=== PATIENT | female | born 1980 | race Caucasian/White ===

== ENCOUNTER → 2017-06-08 09:34 | Outpatient (CLI) | payer OTHER, SELFPAY ==
--- NOTE | 2017-06-08 09:48 | XR_ITS ---
EXAM: XR lumbar spine min 4V HISTORY: Low back pain following injury ORDERING PHYSICIAN: Mey Sheehan PATIENT AGE: 36 years COMPARISON: 12/17/2016 FINDINGS: No acute fracture or dislocation. No lytic or blastic change. Suspected pars interarticularis defect noted at L5 on both sides. CT or MRI may confirm if clinically warranted. No spondylolisthesis. Mild degenerative disc disease in the lower thoracic spine and at T12-L1 as well as L5-S1 not significant changed.. IMPRESSION: 1. No change with no acute finding. 2. Mild lumbar spondylosis with suspected pars defect at L5
--- NOTE | 2017-06-08 09:49 | XR_ITS ---
XR forearm RT 2V HISTORY: Pain following injury ITS.REASON: HILDA BACK PAIN,INJURY RT FOREARM,CERVICALGIA ORDERING PHYSICIAN: Mey Sheehan PATIENT AGE: 36 years COMPARISON: None FINDINGS: No obvious fracture, dislocation, lytic change or blastic change. Normal mineralization. Unremarkable soft tissues IMPRESSION: Negative forearm
--- NOTE | 2017-06-08 09:49 | XR_ITS ---
EXAM: XR cervical spine 5V HISTORY: Neck pain following injury ORDERING PHYSICIAN: Mey Sheehan PATIENT AGE: 36 years COMPARISON: None FINDINGS: There is straightening of the cervical lordosis which may be due to patient positioning or muscle spasm. There is minimal anterolisthesis of C3 on 4 and C4 on 5 of 1 to 2 mm at each level. No prevertebral soft tissue swelling. No fracture or dislocation. Mild foraminal narrowing is noted on the left at C3-C4 and C4-C5. No other significant anomalies are evident. IMPRESSION: 1. Straightening of cervical lordosis which may be due to patient positioning or muscle spasm. 2. Mild left-sided foraminal narrowing at C3-C4 and C4-C5
== END ==
PROVIDERS: PCP Family Medicine; Visit Provider Nurse Practitioner Family
DX: M54.41 Lumbago with sciatica, right side (principal); M54.2 Cervicalgia; S59.911A Unspecified injury of right forearm, initial encounter
CPT/HCPCS: 72050; 72110; 73090

== ENCOUNTER → 2017-10-21 13:54 | Outpatient (CLI) | payer OTHER, SELFPAY | PROVIDERS: PCP Nurse Practitioner; Visit Provider Nurse Practitioner | DX: R00.2 Palpitations (principal) | CPT/HCPCS: 93225; 93226 ==

== ENCOUNTER → 2020-11-19 07:15 | Outpatient (CLI) | payer SELFPAY ==
--- NOTE | 2020-11-19 07:16 | CT_ITS ---
PROCEDURE: CT HEART W CALCIUM SCORE CLINICAL HISTORY: DM COMPARISON: No exams were available for comparison TECHNIQUE: Axial images obtained with sagittal and coronal reformats. All CT scans at the facility use one or more dose reduction, viz: automated exposure control, ma/kV adjustment per patient size (including targeted exams where dose is matched to indication, i.e. head), or iterative reconstruction technique. FINDINGS: Coronary artery calcium score is 0. No identifiable calcific atherosclerotic plaque with very low cardiovascular disease risk There are degenerative changes at the costovertebral junction in the lower thoracic spine IMPRESSION: No identifiable calcific atherosclerotic plaque with very low cardiovascular disease risk Dictated by: Mike Kelley MD 11/19/2020 16:24 Mike Kelley MD in [place] 11/19/2020 16:24
== END ==
PROVIDERS: PCP Nurse Practitioner Family; Visit Provider Physician Assistant
DX: Z13.6 Encounter for screening for cardiovascular disorders (principal); E11.69 Type 2 diabetes mellitus with other specified complication; I10 Essential (primary) hypertension; Z79.84 Long term (current) use of oral hypoglycemic drugs
CPT/HCPCS: 75571

== ENCOUNTER → 2022-06-15 10:28 | Outpatient (CLI) | payer OTHER, SELFPAY ==
--- NOTE | 2022-06-15 10:36 | XR_ITS ---
FINAL REPORT CLINICAL HISTORY: LEFT WRIST PAIN FINDINGS: LEFT WRIST Three views demonstrate no acute fracture or dislocation. There is positive ulnar variance with a cyst in the proximal medial lunate. Ulnar impaction syndrome not excluded. There is widening of the distal radial ulnar joint. Soft tissues are unremarkable. IMPRESSION: Possible ulnar impaction syndrome with widening of the distal radial ulnar joint. Reviewed, Interpreted and Dictated by Justin Noriega III, MD Transcribed by Lucie Laguerre Authenticated and . [facility]
== END ==
PROVIDERS: PCP Nurse Practitioner Family; Visit Provider Nurse Practitioner Family
DX: M25.532 Pain in left wrist (principal)
CPT/HCPCS: 73110

== ENCOUNTER → 2022-09-03 11:33 | Outpatient (CLI) | payer OTHER, SELFPAY ==
--- NOTE | 2022-09-03 11:39 | XR_ITS ---
FINAL REPORT CLINICAL HISTORY: NO INJURY, low back pain COMPARISON: 06/08/2017 FINDINGS: LUMBAR SPINE Six views demonstrate no acute fracture. There are mild degenerative changes. There is no malalignment. IMPRESSION: No acute bony abnormality. Reviewed, Interpreted and Dictated by Justin Noriega III, MD Transcribed by Iris Berrios Authenticated and [facility]
== END ==
PROVIDERS: PCP Nurse Practitioner Family; Visit Provider Nurse Practitioner Family
DX: M54.50 Low back pain, unspecified (principal); M43.06 Spondylolysis, lumbar region
CPT/HCPCS: 72110

== ENCOUNTER 2023-12-06 10:31 | Outpatient (CLI) | payer OTHER, SELFPAY ==
[2023-12-06 10:53] LABS: Basophils # 0.1 K/mm3 (0-0.2); Eosinophils # 0.1 K/mm3 (0.0-0.4); Eosinophils % 1.1 % (0.1-12.0); Hematocrit 44.5 % (37.0-47.0); Hemoglobin 14.7 g/dL (12.2-16.2); Lymphocytes # 2.5 K/mm3 (0.7-4.5); Mean Corpuscular Hemoglobin 30.2 pg (27.0-31.2); Mean Corpuscular Volume 91.6 fl (81-99); Mean Platelet Volume 9.1 fl (7.4-10.4); Monocytes # 0.4 K/mm3 (0.1-1.0); Monocytes % 3.1 % (1.7-9.3); Neutrophils % 71.8 % (37.0-80.0); Platelet Count 389 K/mm3 (142-424); Red Blood Count 4.85 M/mm3 (4.20-5.40); Red Cell Distribution Width 14.2 % (11.5-17.5); White Blood Count 11.1 K/mm3 (4.8-10.8)
[2023-12-06 11:23] LABS: Alanine Aminotransferase 22 U/L (12-78); Albumin Level 3.5 g/dl (3.5-5.0); Alkaline Phosphatase 84 U/L (38-126); Anion Gap 11.9 mEq/L (5-15); Aspartate Amino Transferase 23 U/L (14-36); Bilirubin,Indirect 0.5 mg/dL (0.0-0.9); Bilirubin,Total 0.5 mg/dl (0.2-1.3); Bilirubin,Unconjugated 0.7 mg/dL (0.0-1.1); Blood Urea Nitrogen 10 mg/dl (7-17); Calcium 9.5 mg/dl (8.4-10.2); Carbon Dioxide 26 mmol/L (22.0-30.0); Chloride 103 mmol/L (98-107); Chol/HDL Ratio 4.4 (1-3.5); Cholesterol 235 mg/dl (140-200); Estimated Glomerular Filt Rate 90 ml/min (>60); GFR (African American) 109 ML/MIN (>60); Glucose 134 mg/dl (74-100); HDL Cholesterol 53 mg/dl (40-60); Magnesium 1.7 mg/dl (1.6-2.3); Potassium 3.9 mmoL/L (3.5-5.1); Sodium 137 mmol/L (136-145); Total Protein,Serum 6.3 g/dl (6.3-8.2); Triglycerides 201 mg/dl (30-150); VLDL Cholesterol 40 mg/dL (0-40)
[2023-12-06 11:35] LABS: Direct LDL Cholesterol 153.61 mg/dL (100-129)
[2023-12-06 11:42] LABS: Free T4 (Free Thyroxine) 0.61 ng/dl (0.78-2.19)
== END 2023-12-06 23:59 | disposition home or self-care (01) ==
LOC: LAB 10:32
PROVIDERS: PCP Nurse Practitioner; Visit Provider Nurse Practitioner
DX: I10 Essential (primary) hypertension (principal); E06.3 Autoimmune thyroiditis
CPT/HCPCS: 80048; 80061; 80076; 83735; 84439; 84443; 85025

== ENCOUNTER 2024-02-01 13:56 | Outpatient (CLI) | payer OTHER, SELFPAY ==
--- NOTE | 2024-02-01 | MR_ITS ---
FINAL REPORT CLINICAL HISTORY: LBP COMPARISON: None FINDINGS: Multiplanar MR imaging of the lumbar spine was performed without contrast. On the sagittal T2-weighted images, there is abnormal decreased signal in the L3-4, L4-5, and L5-S1 discs. The vertebrae are of normal height. The vertebral alignment is normal. L1-2: There is no significant canal stenosis or neural foraminal narrowing. L2-3: There is no significant canal stenosis or neural foraminal narrowing. L3-4: There is no significant canal stenosis or neural foraminal narrowing. L4-5: There is a moderate-sized midline and left paracentral disc protrusion that produces moderate compromise of the left lateral recess. L5-S1: A moderate annular bulge is present, with moderate bilateral neural foraminal narrowing. IMPRESSION: Degenerative changes present, particularly at the L4-5 and L5-S1 levels as described. Reviewed, Interpreted and Dictated by Sabino Cho MD Transcribed by Nafisa Terry Authenticated and [facility]
== END 2024-02-01 23:59 | disposition home or self-care (01) ==
LOC: RAD 13:57
PROVIDERS: PCP Nurse Practitioner; Visit Provider Student in an Organized Health Care Education/Training Program
DX: M54.41 Lumbago with sciatica, right side (principal); M54.42 Lumbago with sciatica, left side
CPT/HCPCS: 72148

== ENCOUNTER 2024-08-22 10:52 | Outpatient (CLI) | payer OTHER, SELFPAY ==
[2024-08-22 11:41] LABS: Albumin Level 3.7 g/dl (3.5-5.0)
[2024-08-22 11:44] LABS: Alanine Aminotransferase 17 U/L (12-78); Alkaline Phosphatase 90 U/L (38-126); Aspartate Amino Transferase 20 U/L (14-36); Bilirubin,Direct 0.1 mg/dl (0.0-0.4); Bilirubin,Indirect 0.6 mg/dL (0.0-0.9); Bilirubin,Total 0.7 mg/dl (0.2-1.3); Bilirubin,Unconjugated 0.6 mg/dL (0.0-1.1); Chol/HDL Ratio 3.8 (1-3.5); Cholesterol 228 mg/dl (140-200); HDL Cholesterol 60 mg/dl (40-60); Total Protein,Serum 6.4 g/dl (6.3-8.2); Triglycerides 180 mg/dl (30-150); VLDL Cholesterol 36 mg/dL (0-40)
[2024-08-22 11:55] LABS: Direct LDL Cholesterol 142.78 mg/dL (100-129)
--- OUTSIDE RECORDS SUMMARY | 2024-08-24 21:07 | XMS_ITS ---
Author Organization [facility] Address [address] [place] [address] Phone Care Team Providers Care Human Resources Executive Name Role Phone ADRIANA TANNIE Unavailable [phone] Tasha REYES, [facility] Unavailable [phone] Problems Includes: Active, inactive, and resolved Problems All Visits Onset Date Resolved Date Provider Condition S tatus Lower Back Pain 11/05/2022 Jemal Arcos MD Act shani Last Documented On 3 10:37AM ; [facility], [facility] Plan of Treatment Instructions to patient Lose weight Last Documented On 4 9:45AM ; [facility] Lose weight Last Documented On 4 10:23AM ; [facility] Lose weight Last Documented On 4 10:13AM ; [facility] Lose weight Last Documented On 3 1:41PM ; [facility], [facility] Lose weight Last Documented On 3 11:14AM ; [facility], [facility] Assessments Includes: Assessments for all patient encounters Findings Encounter Date Overweight Follow Up with Jemal Arcos MD 10/25/2023 Last Documented On 4 10:46AM ; [facility] Overweight Follow Up with Jemal Arcos MD 08/23/2023 Last Documented On 4 4:50PM ; [facility] Overweight Follow Up with Jemal Arcos MD 06/07/2023 Last Documented On 4 11:43AM ; [facility] Overweight Follow Up with Jemal Arcos MD 12/28/2022 Last Documented On 3 1:12PM ; [facility], [facility] Instructions Includes: Instructions for all patient encounters Instructions to patient Lose weight Last Documented On 4 9:45AM ; [facility], [facility] Lose weight Last Documented On 4 10:23AM ; [facility], [facility] Lose weight Last Documented On 4 10:13AM ; [facility], [facility] Lose weight Last Documented On 3 1:41PM ; [facility], [facility] Lose weight Last Documented On 3 11:14AM ; [facility] Medical Equipment - Implanted Devices Includes: Current and historical Devices No Medical Equipment Recorded Medications Includes: Current and historical Medications Current Medications (continue as prescribed) ZyrTEC Allergy 10 MG Oral Tablet 11/05/2022 Provider : Diagnosis: Last Documented On 3 10:45AM By Dione Frederick ; [facility], [facility] Bisoprolol Fumarate 10 MG Oral Tablet 10/26/2022 Pro vider: Diagnosis: Last Documented On 3 11:04AM By Carolina Cooley ; [facility], [facility] Methylphenidate HCl ER 36 MG Oral Tablet Extended Release 24 Hour 10/15/2022 Provider: Diagnosis: Last Documented On 3 10:43AM By Dione Frederick ; [facility], [facility] cloNIDine HCl 0.1 MG Oral Tablet 10/14/2022 Provider : NIDIA TAN Diagnosis: Last Documented On 3 10:45AM By Dione Frederick ; [facility], [facility] [place] Thyroid 90 MG Oral Tablet 10/11/2022 Provider : NIDIA TAN Diagnosis: Last Documented On 3 10:39AM By Dione Frederick ; [facility], [facility] Trulicity 0.75 MG/0.5ML Subc utaneous Solution Pen-injector 10/07/2022 Provider: ISAIAH PALOMINO MD (E ) Diagnosis: Last Documented On 3 10:43AM By Dione Frederick ; [facility], [facility] Gabapentin 300 MG Oral Capsule 09/23/2022 Provider: NIDIA TAN Diagnosis: Last Documented On 3 10:43AM By Dione Lanza [facility] FLUoxetine HCl 20 MG Oral Tablet 09/22/2022 Provider : Diagnosis: Last Documented On 3 10:44AM By Dione Frederick ; [facility], [facility] metFORMIN HCl ER 500 MG Oral Tablet Extended Release 24 Hour 09/02/2022 Provider: NIDIA TAN Diagnosis: Last Documented On 3 10:45AM By Dione Frederick ; [facility], [facility] Lisinopril-hydroCHLOROthiazi de 20-12.5 MG Oral Tablet 05/09/2022 Provider: NIDIA TAN Diagnosis: Last Documented On 3 10:39AM By Dione SAHA [facility], [facility] Past Medications on file Bisoprolol Fumarate 10 MG Oral Tablet 10/26/2022 - Provider: Diagnosis: Last Documented On 3 11:02AM By Carolina Lanza [facility], [facility] Trulicity 0.75 MG/0.5ML Subcutaneous Solution Pen-injector 09/18/2022 - 11/05/2022 Provider: ISAIAH PALOMINO MD (E) Diagnosis: Last Documented On 3 10:44AM By Dione Frederick ; [facility] Bisoprolol Fumarate 10 MG Oral Tablet 04/28/2022 - Provider: Diagnosis: Last Documented On 3 10:44AM By Dione Frederick ; [facility] Medications Administered Includes: Administered Medications in patient's chart No Administered Medications Recorded Vital Signs Includes: Vital Signs from 08/25/2023 through 08/24/2024 Vital Name 10/25/2023 09:46A Height (in) 64 Weight (lb) 225 Body Mass Index 38.6 Body Surface Area 2.1 Note: PW Last Documented: On 10/25/2023 10:04A M ; [facility] Results Includes: Results from 08/25/2023 through 08/24/2024 No Results Recorded For Specified Dates History of Present Illness History of Present Illness not supported for this document type No History of Present Illness Recorded Social History Description Last Updated Tobacco non-user 11/05/2022 Last Documented On 3 11:05AM ; [facility] Caffeine use 11/05/2022 Last Documented On 3 11:05AM ; [facility] Exercising regularly 11/05/2022 Last Documented On 3 11:05AM ; [facility], [facility] Not a current smoker. 11/05/2022 Last Documented On 3 11:05AM ; [facility] Not using alcohol 11/05/2022 Last Documented On 3 11:05AM ; [facility], [facility] Not using drugs 11/05/2022 Last Documented On 3 11:05AM ; [facility], [facility] Recent change in diet Diabetic, nut and shellfish allergy 11/05/2022 Last Documented On 3 11:05AM ; [facility] Smoking Status Unknown Procedures and Surgical History Includes: Procedures from 08/25/2023 through 08/24/2024 Procedures Code Diagnosis Performing Provider Service Location Service Date Triamcinolone/Ke nalog, 10mg per cc [id number] Other intervertebral disc displacement, lumbar region Valentin Rodriguez CONTINUING EDUCATION INSTRUCTOR [facility] 09/17/2023 Last Documented On 4 8:55AM ; [facility] Lumbar epidural 92149 Other interverte bral disc displacement, lumbar region Valentin Rodriguez CONTINUING EDUCATION INSTRUCTOR [facility] 09/17/2023 Last Documented On 4 8:55AM ; [facility] Surgical History Last Updated Past Surgical History: Adenomyosis 11/05 Last Documented On 3 11:05AM ; [facility] History of History of Gallbladder 2022 Last Documented On 3 11:05AM ; [facility] Medical History Includes: Medical History in patient's chart Description Last Updated History of Anemia 11/05/2022 Last Documented On 3 11:05AM ; [facility] History of arthritis 11/05/2022 Last Documented On 3 11:05AM ; [facility] History of depression 11/05/2022 Last Documented On 3 11:05AM ; [facility], [facility] History of diabetes mellitus 11/05/2022 Last Documented On 3 11:05AM ; [facility], [facility] History of Hypertension 11/05/2022 Last Documented On 3 11:05AM ; [facility], [facility] History of Irregular Heartbeat 3 Last Documented On 3 11:05AM ; [facility], [facility] History of Thyroid Disease 11/05/2022 Last Documented On 3 11:05AM ; [facility], [facility] Family History Includes: Family History in patient's chart Description Last Updated Diabetes mellitus 11/05/2022 Last Documented On 3 11:05AM ; [facility] Family history of cancer 11/05/2022 Last Documented On 3 11:05AM ; [facility] Family history of heart disease 11/06/19 23 Last Documented On 3 11:05AM ; [facility] Family history of osteoporosis 3 Last Documented On 3 11:05AM ; [facility] Family history of rheumatoid arthritis 0 11/05/2022 Last Documented On 3 11:05AM ; [facility] Family history of systemic hypertension 11/05/2022 Last Documented On 3 11:05AM ; [facility] Stroke / Seizures 11/05/2022 Last Documented On 3 11:05AM ; [facility], [facility] Maternal grandfather's history of diabet es mellitus 11/05/2022 Last Documented On 3 11:05AM ; [facility], [facility] Maternal grandfather's history of rheuma toid arthritis 11/05/2022 Last Documented On 3 11:05AM ; [facility], [facility] Maternal grandfather's history of system ic hypertension 11/05/2022 Last Documented On 3 11:05AM ; [facility], [facility] Maternal grandmother's history of osteop orosis 11/05/2022 Last Documented On 3 11:05AM ; [facility] Maternal grandmother's history of Stroke / Seizures 11/05/2022 Last Documented On 3 11:05AM ; [facility] Maternal grandmother's history of system ic hypertension 11/05/2022 Last Documented On 3 11:05AM ; [facility] Maternal history of osteoporosis 023 Last Documented On 3 11:05AM ; [facility] Maternal history of systemic hypertensio n 11/05/2022 Last Documented On 3 11:05AM ; [facility] Paternal grandfather's history of family history of cancer 11/05/2022 Last Documented On 3 11:05AM ; [facility] Paternal grandfather's history of family history of heart disease 11/05/2022 Last Documented On 3 11:05AM ; [facility] Paternal grandmother's history of Stroke / Seizures 11/05/2022 Last Documented On 3 11:05AM ; [facility] Paternal grandmother's history of system ic hypertension 11/05/2022 Last Documented On 3 11:05AM ; [facility], [facility] Paternal history of family history of ca ncer 11/05/2022 Last Documented On 3 11:05AM ; [facility] Paternal history of family history of he art disease 11/05/2022 Last Documented On 3 11:05AM ; [facility], [facility] Paternal history of systemic hypertensio n 11/05/2022 Last Documented On 3 11:05AM ; [facility], [facility] Sororal history of diabetes mellitus Last Documented On 3 11:05AM ; [facility], [facility] Sororal history of systemic hypertension 11/05/2022 Last Documented On 3 11:05AM ; [facility] Review of Systems Review of Systems not supported for this document type No Review of Systems Recorded Mental Status Description Anxiety Functional Status No Functional Status Recorded Physical Exam Physical Exam not supported for this document type No Physical Exam Recorded Allergies Includes: Active, inactive, and resolved Allergies No Known Allergies Encounters Includes: Encounters from 08/25/2023 through 08/24/2024 Encounter Provider Location Date Check-In Time Check-Out Time Diagnosis Follow Up Jemal Arcos MD [facility] 10/25/19 9:18AM 10:28AM Overweight Epidural Steroid Injection Valentin Rodriguez CRNA 09/17/19 24 08/23/2023 4:13PM 08/23/2023 11:59PM Epidural Steroid Injection Valentin Rodriguez CRNA [facility] 09/17/19 24 11:12AM 11:29AM Insurance Includes: Active Insurance Policies Plan Name Member ID Group # Subscriber Relationship Effect shani Dates 1 - [id number] Henna sanchez Clinical Notes Includes: Signed Clinical Notes starting from 04/30/2022 No Clinical Notes Recorded
--- OUTSIDE RECORDS SUMMARY | 2024-08-24 21:07 | XMS_ITS ---
Care Plan - [facility] Created on: August 24, 2024 Henna De : 1980 Sex: Female Author Organization [facility] Address [address] [place] [address] Phone Care Team Providers Care Ground Operations Supervisor Name Role Phone NIDIA TAN Unavailable [phone] Tasha REYES, Arnoldo Unavailable [phone]
--- OUTSIDE RECORDS SUMMARY | 2024-08-24 21:07 | XMS_ITS | Clinical Summary ---
Author Organization [facility] Address [address] [place] [address] Phone Care Team Providers Care Clinic Clerk Name Role Phone NIDIA TAN Unavailable [phone] Tasha REYES, [facility] Unavailable [phone] Reason for Visit and Chief Complaint Epidural Steroid Injection Problems Includes: Problems addressed during this encounter and other active Problems All Visits Onset Date Resolved Date Provider Condition S tatus Lower Back Pain 11/05/2022 Jemal Arcos MD Act shani Last Documented On 3 10:37AM ; [facility] Plan of Treatment No Plan of Treatment Recorded Assessments Includes: Assessments from this encounter No Assessments Recorded Medical Equipment - Implanted Devices Includes: Current Devices No Medical Equipment Recorded Medications Includes: Medications discussed during this encounter and other current Medications Current Medications (continue as prescribed) ZyrTEC Allergy 10 MG Oral Tablet 11/05/2022 Provider : Diagnosis: Last Documented On 3 10:45AM By Dione Frederick ; [facility], [facility] Bisoprolol Fumarate 10 MG Oral Tablet 10/26/2022 Pro vider: Diagnosis: Last Documented On 3 11:04AM By Carolina Cooley ; [facility], [facility] Methylphenidate HCl ER 36 MG Oral Tablet Extended Release 24 Hour 10/15/2022 Provider: Diagnosis: Last Documented On 3 10:43AM By Dione Lanza [facility], [facility] cloNIDine HCl 0.1 MG Oral Tablet 10/14/2022 Provider : NIDIA TAN Diagnosis: Last Documented On 3 10:45AM By Dione Frederick ; [facility], [facility] [place] Thyroid 90 MG Oral Tablet 10/11/2022 Provider : NIDIA TAN Diagnosis: Last Documented On 3 10:39AM By Dione Frederick ; [facility], [facility] Trulicity 0.75 MG/0.5ML Subc utaneous Solution Pen-injector 10/07/2022 Provider: ISAIAH PALOMINO MD (E ) Diagnosis: Last Documented On 3 10:43AM By Dione Frederick ; [facility], [facility] Gabapentin 300 MG Oral Capsule 09/23/2022 Provider: NIDIA TAN Diagnosis: Last Documented On 3 10:43AM By Dione Frederick ; [facility], [facility] FLUoxetine HCl 20 MG Oral Tablet 09/22/2022 Provider : Diagnosis: Last Documented On 3 10:44AM By Dione Frederick ; [facility], [facility] metFORMIN HCl ER 500 MG Oral Tablet Extended Release 24 Hour 09/02/2022 Provider: NIDIA TAN Diagnosis: Last Documented On 3 10:45AM By Dione Frederick ; [facility], [facility] Lisinopril-hydroCHLOROthiazi de 20-12.5 MG Oral Tablet 05/09/2022 Provider: NIDIA TAN Diagnosis: Last Documented On 3 10:39AM By Dione Frederick ; [facility], [facility] Medications Administered Includes: Administered Medications from this encounter No Administered Medications Recorded Results Includes: Results discussed during this encounter No Results Recorded For Specified Dates History of Present Illness Includes: History of Present Illness from this encounter No History of Present Illness Recorded Social History No Social History Recorded - Smoking Status Unknown Medical History Includes: Medical History addressed during this encounter No Medical History Recorded Family History Includes: Family History addressed during this encounter No Family History Recorded Review of Systems Includes: Review of Systems from this encounter No Review of Systems Recorded Mental Status Includes: Mental Status from this encounter No Mental Status Recorded Functional Status Includes: Functional Status from this encounter No Functional Status Recorded Physical Exam Includes: Physical Exam from this encounter No Physical Exam Recorded Allergies Includes: Active Allergies No Known Allergies Encounters Encounter Provider Location Date Check-In Time Check-Out Time Diagnosis Epidural Steroid Injection Valentin Rodriguez CRNA 06/16/2023 3:37PM 11:59PM Insurance Includes: Active Insurance Policies Plan Name Member ID Group # Subscriber Relationship Effect shani Dates 1 - [id number] Henna sanchez Clinical Notes Includes: Clinical Notes from this encounter No Clinical Notes Recorded
--- OUTSIDE RECORDS SUMMARY | 2024-08-24 21:07 | XMS_ITS | Clinical Summary ---
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 Name Role Phone NIDIA TAN Unavailable [phone] Tasha REYES, [facility] Unavailable [phone] Reason for Visit and Chief Complaint The Chief Complaint is: low back pain Problems Includes: Problems addressed during this encounter and other active Problems Current Visit Onset Date Resolved Date Provider Claudia alonzo Status Lower Back Pain 11/05/2022 Jemal Arcos MD Act shani Last Documented On 3 10:37AM ; [facility], [facility] Plan of Treatment Instructions to patient Lose weight Last Documented On 4 10:23AM ; [facility], [facility] Assessments Includes: Assessments from this encounter Findings - Overweight - Last Documented On 09/29/2023 4:50PM ; [facility], [facility] Lumbar spondylosis with bilateral lower extremity radiculopathy. - Last Documented On 09/29/2023 4:50PM ; [facility], [facility] L4-L5 L5-S1 disc bulging and foraminal narrowing - Last Documented On 09/29/2023 4:50PM ; [facility], [facility] Plan: Had a discussion with her. She does get good relief from the epidural injections. We have doing more I really want her to start to spread these out and try and work on more activity modification weight loss and exercise to help manage this going forward. She has not to the point that she wants to consider surgery for her back, we will plan on 1 more epidural steroid injection and see her back as needed - Last Documented On 09/29/2023 4:50PM ; [facility] Patient was seen by myself. - Last Documented On 09/29/2023 4:50PM ; [facility] Dictation by Cresencio Matthews PA-C - Last Documented On 09/29/2023 4:50PM ; [facility], [facility] Instructions Includes: Instructions from this encounter Instructions to patient Lose weight Last Documented On 4 10:23AM ; [facility] Medical Equipment - Implanted Devices Includes: Current Devices No Medical Equipment Recorded Medications Includes: Medications discussed during this encounter and other current Medications Current Medications (continue as prescribed) ZyrTEC Allergy 10 MG Oral Tablet 11/05/2022 Provider : Diagnosis: Last Documented On 3 10:45AM By Dione Frederick ; [facility] Bisoprolol Fumarate 10 MG Oral Tablet 10/26/2022 Pro vider: Diagnosis: Last Documented On 3 11:04AM By Carolina Cooley ; [facility] Methylphenidate HCl ER 36 MG Oral Tablet Extended Release 24 Hour 10/15/2022 Provider: Diagnosis: Last Documented On 3 10:43AM By Dione Frederick ; [facility] cloNIDine HCl 0.1 MG Oral Tablet 10/14/2022 Provider : NIDIA TAN Diagnosis: Last Documented On 3 10:45AM By Dione Frederick ; [facility] Vanlue Thyroid 90 MG Oral Tablet 10/11/2022 Provider : NIDIA TAN Diagnosis: Last Documented On 3 10:39AM By Dione Frederick ; [facility], [facility] Trulicity 0.75 MG/0.5ML Subc utaneous Solution Pen-injector 10/07/2022 Provider: ISAIAH PALOMINO MD (E ) Diagnosis: Last Documented On 3 10:43AM By Dione Frederick ; [facility], [facility] Gabapentin 300 MG Oral Capsule 09/23/2022 Provider: NIDIA TAN Diagnosis: Last Documented On 3 10:43AM By Dione Frederick ; [facility], [facility] FLUoxetine HCl 20 MG Oral Tablet 09/22/2022 Provider : Diagnosis: Last Documented On 3 10:44AM By Dione LYNN, [facility] metFORMIN HCl ER 500 MG Oral Tablet Extended Release 24 Hour 09/02/2022 Provider: NIDIA TAN Diagnosis: Last Documented On 3 10:45AM By Dione SOLORZANOS, [facility] Lisinopril-hydroCHLOROthiazi de 20-12.5 MG Oral Tablet 05/09/2022 Provider: NIDIA TAN Diagnosis: Last Documented On 3 10:39AM By Dione Frederick ; [facility] Medications Administered Includes: Administered Medications from this encounter No Administered Medications Recorded Vital Signs Includes: Vital Signs from this encounter Vital Name 08/23/2023 10:22A Height (in) 64 Weight (lb) 223 Body Mass Index 38.3 Body Surface Area 2 Pain Level 5 Note: mbb Last Documented: On 08/23/2023 10:23A M ; Y[facility]AN LYNN, [facility] Results Includes: Results discussed during this encounter No Results Recorded For Specified Dates History of Present Illness Includes: History of Present Illness from this encounter ANU De is a 42 year old female. - Allergy list reviewed - Problem list reviewed - Medication list reviewed - History of Injections JOLEEN L4-5 06/16/2023 100% relief for 8 weeks - - Review of medications documented Patient follows up after L4-L5 epidural steroid injection she got this on June 16, 2023. She said it did help her very well helps with the tingling and pain going down the legs. She would it gave her 100% relief of her symptoms for 8 weeks however past week the pain has started to return she would like to try the injection again. She does do her home exercise and stretching routine, so she has been doing this off and on for several years she is routinely doing it now. We discussed continue with her gabapentin occasional anti-inflammatories and continued home therapy regimen. Social History Description Last Updated Tobacco non-user 11/05/2022 Last Documented On 4 10:23AM ; [facility], [facility] Caffeine use 11/05/2022 Last Documented On 4 10:23AM ; [facility], [facility] Exercising regularly 11/05/2022 Last Documented On 4 10:23AM ; [facility], [facility] Not a current smoker. 11/05/2022 Last Documented On 4 10:23AM ; [facility], [facility] Not using alcohol 11/05/2022 Last Documented On 4 10:23AM ; [facility], [facility] Not using drugs 11/05/2022 Last Documented On 4 10:23AM ; [facility], [facility] Recent change in diet Diabetic, nut and shellfish allergy 11/05/2022 Last Documented On 4 10:23AM ; [facility], [facility] Smoking Status Unknown Procedures and Surgical History Includes: Procedures from this encounter Procedures Code Diagnosis Performing Provider Service L ocation Service Date use of tobacco assessment performed 1000F Last Documented On 4 10:23AM ; [facility], [facility] review of medications documented 1160F Last Documented On 4 10:23AM ; [facility], [facility] an X-ray was performed 33185 Last Documented On 4 10:23AM ; [facility], [facility] an MRI was performed [id number] Last Documented On 4 10:23AM ; [facility], [facility] Surgical History Last Updated Past Surgical History: Adenomyosis 11/05 Last Documented On 4 10:23AM ; [facility], [facility] History of History of Gallbladder 2022 Last Documented On 4 10:23AM ; [facility], [facility] Medical History Includes: Medical History addressed during this encounter Description Last Updated History of Anemia 11/05/2022 Last Documented On 4 10:23AM ; [facility], [facility] History of arthritis 11/05/2022 Last Documented On 4 10:23AM ; [facility], [facility] History of depression 11/05/2022 Last Documented On 4 10:23AM ; [facility], [facility] History of diabetes mellitus 11/05/2022 Last Documented On 4 10:23AM ; [facility], [facility] History of Hypertension 11/05/2022 Last Documented On 4 10:23AM ; [facility], [facility] History of Irregular Heartbeat 3 Last Documented On 4 10:23AM ; [facility] History of Thyroid Disease 11/05/2022 Last Documented On 4 10:23AM ; [facility], [facility] Family History Includes: Family History addressed during this encounter Description Last Updated Diabetes mellitus 11/05/2022 Last Documented On 4 10:23AM ; [facility], [facility] Family history of cancer 11/05/2022 Last Documented On 4 10:23AM ; [facility], [facility] Family history of heart disease 11/06/19 23 Last Documented On 4 10:23AM ; [facility], [facility] Family history of osteoporosis 3 Last Documented On 4 10:23AM ; [facility] Family history of rheumatoid arthritis 0 11/05/2022 Last Documented On 4 10:23AM ; [facility], [facility] Family history of systemic hypertension 11/05/2022 Last Documented On 4 10:23AM ; [facility], [facility] Stroke / Seizures 11/05/2022 Last Documented On 4 10:23AM ; [facility], [facility] Maternal grandfather's history of diabet es mellitus 11/05/2022 Last Documented On 4 10:23AM ; [facility], [facility] Maternal grandfather's history of rheuma toid arthritis 11/05/2022 Last Documented On 4 10:23AM ; [facility], [facility] Maternal grandfather's history of system ic hypertension 11/05/2022 Last Documented On 4 10:23AM ; [facility], [facility] Maternal grandmother's history of osteop orosis 11/05/2022 Last Documented On 4 10:23AM ; [facility] Maternal grandmother's history of Stroke / Seizures 11/05/2022 Last Documented On 4 10:23AM ; [facility] Maternal grandmother's history of system ic hypertension 11/05/2022 Last Documented On 4 10:23AM ; [facility], [facility] Maternal history of osteoporosis 023 Last Documented On 4 10:23AM ; [facility], [facility] Maternal history of systemic hypertensio n 11/05/2022 Last Documented On 4 10:23AM ; [facility], [facility] Paternal grandfather's history of family history of cancer 11/05/2022 Last Documented On 4 10:23AM ; [facility], [facility] Paternal grandfather's history of family history of heart disease 11/05/2022 Last Documented On 4 10:23AM ; [facility], [facility] Paternal grandmother's history of Stroke / Seizures 11/05/2022 Last Documented On 4 10:23AM ; [facility], [facility] Paternal grandmother's history of system ic hypertension 11/05/2022 Last Documented On 4 10:23AM ; [facility], [facility] Paternal history of family history of ca ncer 11/05/2022 Last Documented On 4 10:23AM ; [facility], [facility] Paternal history of family history of he art disease 11/05/2022 Last Documented On 4 10:23AM ; [facility], [facility] Paternal history of systemic hypertensio n 11/05/2022 Last Documented On 4 10:23AM ; [facility], [facility] Sororal history of diabetes mellitus Last Documented On 4 10:23AM ; [facility], [facility] Sororal history of systemic hypertension 11/05/2022 Last Documented On 4 10:23AM ; [facility], [facility] Review of Systems Includes: Review of Systems from this encounter Systemic: Feeling tired. No recent weight loss and no recent weight gain. Head: No headache and no sinus pain. Eyes: No vision problems and no Cataracts. Glasses/Contacts. No Glaucoma. Otolaryngeal: No hearing loss and no tinnitus. Cardiovascular: No chest pain or discomfort. Palpitations and Hypertension. No High Cholesterol. Pulmonary: No daytime asthma symptoms and no chronic cough. No wheezing. Gastrointestinal: No heartburn and no abdominal pain. No Indigestion, no Peptic Ulcer, no GI Stomach Bleed, no Ulcers, and no Acid Reflux. Endocrine: No hot flashes and no muscle weakness. Diabetes and Hypothyroid. No Hyperthyroid. Hematologic: No easy bleeding and no tendency for easy bruising. Anemia. Musculoskeletal: Arthritis and lower back pain. No soft tissue swelling and no localized joint pain. Neurological: No dizziness and no convulsions. Numbness. Psychological: Anxiety. No emotional lability. Depression. No insomnia. Not crying for no reason. Skin: No dry skin. No Ulcers, no Scars, and no rash. Allergic and Immunologic: Complaint of seasonal allergic reaction. Mental Status Includes: Mental Status from this encounter Description Anxiety Functional Status Includes: Functional Status from this encounter No Functional Status Recorded Physical Exam Includes: Physical Exam from this encounter Allergies Includes: Active Allergies No Known Allergies Encounters Encounter Provider Location Date Check-In Time Check-Out Time Diagnosis Follow Up Jemal Arcos MD [facility] 4 10:13AM 10:34AM Overweight Insurance Includes: Active Insurance Policies Plan Name Member ID Group # Subscriber Relationship Effect shani Dates 1 - [employer]IME [id number] Henna De Yvette f Clinical Notes Includes: Clinical Notes from this encounter * Progress note Date Encounter Last Documented by 08/23/2023 Follow Up Last documented on 09/29/2023; 4:50 PM, Jemal Arcos MD; [facility] Active Problems & Conditions - Lower Back Pain Chief Complaint The Chief Complaint is: Low back pain. Referred Here Referred by PCP. History of Present Illness Henna De is a 42 year old female. - Allergy list reviewed - Problem list reviewed - Medication list reviewed - History of Injections JOLEEN L4-5 06/16/2023 100% relief for 8 weeks - - Review of medications documented Patient follows up after L4-L5 epidural steroid injection she got this on June 16, 2023. She said it did help her very well helps with the tingling and pain going down the legs. She would it gave her 100% relief of her symptoms for 8 weeks however past week the pain has started to return she would like to try the injection again. She does do her home exercise and stretching routine, so she has been doing this off and on for several years she is routinely doing it now. We discussed continue with her gabapentin occasional anti-inflammatories and continued home therapy regimen. Current Medication - Vanlue Thyroid 90 MG Oral Tablet 90 days, 0 refills - Bisoprolol Fumarate 10 MG Oral Tablet 90 days, 0 refills - cloNIDine HCl 0.1 MG Oral Tablet 90 days, 0 refills - FLUoxetine HCl 20 MG Oral Tablet 90 days, 0 refills - Gabapentin 300 MG Oral Capsule 90 days, 0 refills - Lisinopril-hydroCHLOROthiazide 20-12.5 MG Oral Tablet 90 days, 0 refills - metFORMIN HCl ER 500 MG Oral Tablet Extended Release 24 Hour 90 days, 0 refills - Methylphenidate HCl ER 36 MG Oral Tablet Extended Release 24 Hour 30 days, 0 refills - Trulicity 0.75 MG/0.5ML Subcutaneous Solution Pen-injector 84 days, 0 refills - ZyrTEC Allergy 10 MG Oral Tablet take as directed 0 days, 0 refills Past Medical/Surgical History Diagnoses: Anemia Irregular Heartbeat Thyroid Disease Hypertension. Diabetes mellitus. Arthritis. Depression Surgical: - Past Surgical History: Adenomyosis - History of Gallbladder Social History Not a current smoker. Current diet: Recent change in diet Diabetic, nut and shellfish allergy. Caffeine use: Caffeine use. Tobacco use: Tobacco non-user. Alcohol: Not using alcohol. Drug Use: Not using drugs. Habits: Exercising regularly. Allergies - No Known Allergies Family History Cancer Heart disease Stroke / Seizures Diabetes mellitus Systemic hypertension Osteoporosis Rheumatoid arthritis Paternal: Cancer Heart disease Systemic hypertension Maternal: Systemic hypertension Osteoporosis Paternal grandfather's: Cancer Heart disease Paternal grandmother's: Stroke / Seizures Systemic hypertension Maternal grandfather's: Systemic hypertension Diabetes mellitus Rheumatoid arthritis Maternal grandmother's: Stroke / Seizures Systemic hypertension Osteoporosis Sororal: Systemic hypertension Diabetes mellitus Review Of Systems Systemic: Feeling tired. No recent weight loss and no recent weight gain. Head: No headache and no sinus pain. Eyes: No vision problems and no Cataracts. Glasses/Contacts. No Glaucoma. Otolaryngeal: No hearing loss and no tinnitus. Cardiovascular: No chest pain or discomfort. Palpitations and Hypertension. No High Cholesterol. Pulmonary: No daytime asthma symptoms and no chronic cough. No wheezing. Gastrointestinal: No heartburn and no abdominal pain. No Indigestion, no Peptic Ulcer, no GI Stomach Bleed, no Ulcers, and no Acid Reflux. Endocrine: No hot flashes and no muscle weakness. Diabetes and Hypothyroid. No Hyperthyroid. Hematologic: No easy bleeding and no tendency for easy bruising. Anemia. Musculoskeletal: Arthritis and lower back pain. No soft tissue swelling and no localized joint pain. Neurological: No dizziness and no convulsions. Numbness. Psychological: Anxiety. No emotional lability. Depression. No insomnia. Not crying for no reason. Skin: No dry skin. No Ulcers, no Scars, and no rash. Allergic and Immunologic: Complaint of seasonal allergic reaction. Physical Findings - Vitals taken 08/23/2023 10:22 am mbb Height 64 in Weight 223 lbs Body Mass Index 38.3 kg/m2 Body Surface Area 2 m2 Pain Level 5 Standard Measurements: - Patient was overweight. Pleasant, alert and oriented x3. Bilateral lower extremities neurovascularly intact with good strength. No redness or rash on her back. She walks gait today. Assessment - Overweight Lumbar spondylosis with bilateral lower extremity radiculopathy. L4-L5 L5-S1 disc bulging and foraminal narrowing Plan: Had a discussion with her. She does get good relief from the epidural injections. We have doing more I really want her to start to spread these out and try and work on more activity modification weight loss and exercise to help manage this going forward. She has not to the point that she wants to consider surgery for her back, we will plan on 1 more epidural steroid injection and see her back as needed Patient was seen by myself. Dictation by Cresencio Matthews PA-C Previous Tests Imaging: Intravascular Ultrasound (Coronary Vessel/Graft): An X-ray was performed. CT Scan Lower Extremity Foot: An MRI was performed. Available previous imaging studies were reviewed Available previous history reviewed Counseling/Education - Tobacco non-user - Use of tobacco assessment performed - Lose weight Notes This dictation was done with voice recognition software and may contain errors and omissions. Practice Management Use of tobacco assessment performed Review of medications documented. Care Team - NIDIA TAN Health Reminders - Assess BMI satisfied 08/23/2023. - Assess Tobacco Use satisfied 11/05/2022. - Follow Up Plan BMI Management satisfied 08/23/2023.
--- OUTSIDE RECORDS SUMMARY | 2024-08-24 21:07 | XMS_ITS | Clinical Summary ---
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 Name Role Phone NIDIA TAN Unavailable [phone] Tasha REYES, [facility] Unavailable [phone] Reason for Visit and Chief Complaint Epidural Steroid Injection Problems Includes: Problems addressed during this encounter and other active Problems All Visits Onset Date Resolved Date Provider Condition S tatus Lower Back Pain 11/05/2022 Jemal Arcos MD Act shani Last Documented On 3 10:37AM ; [facility] Plan of Treatment No Plan of [...] On 3 10:45AM By Dione Frederick ; [facility], [facility] Bisoprolol Fumarate 10 MG Oral Tablet 10/26/2022 Pro vider: Diagnosis: Last Documented On 3 11:04AM By Carolina Cooley ; [facility], [facility] Methylphenidate HCl ER 36 MG Oral Tablet Extended Release 24 Hour 10/15/2022 Provider: Diagnosis: Last Documented On 3 10:43AM By Dione Lanza [facility], [facility] cloNIDine HCl 0.1 MG Oral Tablet 10/14/2022 Provider : NIDIA TAN Diagnosis: Last Documented On 3 10:45AM By Dione Frederick ; [facility], [facility] Marvell Thyroid 90 MG Oral Tablet 10/11/2022 Provider : NIDIA TAN Diagnosis: Last Documented On 3 10:39AM By Dione Frederick ; [facility], [facility] Trulicity 0.75 MG/0.5ML Subc utaneous Solution Pen-injector 10/07/2022 Provider: ISAIAH PALOMINO MD (E ) Diagnosis: Last Documented On 3 10:43AM By Dione Frederick ; [facility], [facility] Gabapentin 300 MG Oral Capsule 09/23/2022 Provider: NIDIA TAN Diagnosis: Last Documented On 3 10:43AM By Dione Frederick ; [facility], [facility] FLUoxetine HCl 20 MG Oral Tablet 09/22/2022 Provider : Diagnosis: Last Documented On 3 10:44AM By Dione Frederick ; [facility], [facility] metFORMIN HCl ER 500 MG Oral Tablet Extended Release 24 Hour 09/02/2022 Provider: NIDIA TAN Diagnosis: Last Documented On 3 10:45AM By Dione Frederick ; [facility], [facility] Lisinopril-hydroCHLOROthiazi de 20-12.5 MG Oral Tablet 05/09/2022 Provider: NIDIA TAN Diagnosis: Last Documented On 3 10:39AM By Dione Frederick ; [facility], [facility] Medications Administered Includes: Administered Medications from [...] Diagnosis Epidural Steroid Injection Valentin Rodriguez CRNA 09/17/2023 4:13PM 11:59PM Insurance Includes: Active Insurance Policies Plan Name Member ID Group # Subscriber Relationship Effect shani Dates 1 - [facility] [id number] Henna sanchez Clinical Notes Includes: Clinical Notes from this encounter No Clinical Notes Recorded
--- OUTSIDE RECORDS SUMMARY | 2024-08-24 21:07 | XMS_ITS | Clinical Summary ---
Author Organization [facility] Address [address] [place] [address] Phone Care Team Providers Care Manager Budget Name Role Phone NIDIA TAN Unavailable [phone] Tasha REYES, [facility] Unavailable [phone] Reason for Visit and Chief Complaint Epidural Steroid Injection Problems Includes: Problems addressed during this encounter and other active Problems All Visits Onset Date Resolved Date Provider Condition S tatus Lower Back Pain 11/05/2022 Jemal Arcos MD Act shani Last Documented On 3 10:37AM ; [facility] Plan of Treatment No Plan of [...] On 3 10:45AM By Dione Frederick ; [facility], [facility] Bisoprolol Fumarate 10 MG Oral Tablet 10/26/2022 Pro vider: Diagnosis: Last Documented On 3 11:04AM By Carolina Cooley ; [facility], [facility] Methylphenidate HCl ER 36 MG Oral Tablet Extended Release 24 Hour 10/15/2022 Provider: Diagnosis: Last Documented On 3 10:43AM By Dione Lanza [facility], [facility] cloNIDine HCl 0.1 MG Oral Tablet 10/14/2022 Provider : NIDIA TAN Diagnosis: Last Documented On 3 10:45AM By Dione Frederick ; [facility] [place] Thyroid 90 MG Oral Tablet 10/11/2022 Provider : NIDIA TAN Diagnosis: Last Documented On 3 10:39AM By Dione Frederick ; [facility], [facility] Trulicity 0.75 MG/0.5ML Subc utaneous Solution Pen-injector 10/07/2022 Provider: ISAIAH PALOMINO MD (E ) Diagnosis: Last Documented On 3 10:43AM By Dione Frederick ; [facility] Gabapentin 300 MG Oral Capsule 09/23/2022 Provider: NIDIA TAN Diagnosis: Last Documented On 3 10:43AM By Dione Frederick ; [facility] FLUoxetine HCl 20 MG Oral Tablet 09/22/2022 Provider : Diagnosis: Last Documented On 3 10:44AM By Dione Frederick ; [facility] metFORMIN HCl ER 500 MG Oral Tablet Extended Release 24 Hour 09/02/2022 Provider: NIDIA TAN Diagnosis: Last Documented On 3 10:45AM By Dione Frederick ; [facility] Lisinopril-hydroCHLOROthiazi de 20-12.5 MG Oral Tablet 05/09/2022 Provider: NIDIA TAN Diagnosis: Last Documented On 3 10:39AM By Dione Frederick ; [facility] Medications Administered Includes: Administered Medications from this encounter No Administered Medications Recorded Results Includes: Results discussed during this encounter No Results Recorded For Specified Dates History of Present Illness Includes: History of Present Illness from this encounter No History of Present Illness Recorded Social History No Social History Recorded - Smoking Status Unknown Procedures and Surgical History Includes: Procedures from this encounter Procedures Code Diagnosis Performing Provider Service Location Service Date Lumbar epidural 00870 Other intervertebral disc displacement, lumbar region Valentin Rodriguez [facility] 09/17/2023 Last Documented On 4 8:55AM ; [facility] Triamcinolone/Kenalog, 10mg per cc [id number] Other intervertebral disc displacement, lumbar region Valentin Rodriguez [facility] 09/17/2023 Last Documented On 4 8:55AM ; [facility] Medical History Includes: Medical History addressed [...] Time Diagnosis Epidural Steroid Injection Valentin Rodriguez [facility] 09/17/19 24 11:12AM 11:29AM Insurance Includes: Active Insurance Policies Plan Name Member ID Group # Subscriber Relationship Effect shani Dates 1 - PRIME [id number] Henna sanchez Clinical Notes Includes: Clinical Notes from this encounter No Clinical Notes Recorded
--- OUTSIDE RECORDS SUMMARY | 2024-08-24 21:07 | XMS_ITS | Clinical Summary ---
Author Organization [facility] Address [address] [place] [address] Phone Care Team Providers Care Web Marketing Specialist Name Role Phone NIDIA TAN Unavailable [phone] Tasha REYES, [facility] Unavailable [phone] Reason for Visit and Chief Complaint The Chief Complaint is: low back pain Problems Includes: Problems addressed during this encounter and other active Problems Current Visit Onset Date Resolved Date Provider Claudia alonzo Status Lower Back Pain 11/05/2022 Jemal Arcos MD Act shani Last Documented On 3 10:37AM ; [facility] Plan of Treatment Instructions to patient Lose weight Last Documented On 4 9:45AM ; [facility] Assessments Includes: Assessments from this encounter Findings - Overweight - Last Documented On 10/25/2023 10:46AM ; [facility], [facility] Instructions Includes: Instructions from this encounter Instructions to patient Lose weight Last Documented On 4 9:45AM ; [facility] Medical Equipment - Implanted Devices Includes: Current Devices No Medical Equipment Recorded Medications Includes: Medications discussed during this encounter and other current Medications Current Medications (continue as prescribed) ZyrTEC Allergy 10 MG Oral Tablet 11/05/2022 Provider : Diagnosis: Last Documented On 3 10:45AM By Dione Frederick ; [facility], [facility] Bisoprolol Fumarate 10 MG Oral Tablet 10/26/2022 Pro vider: Diagnosis: Last Documented On 3 11:04AM By Carolina Cooley ; [facility], [facility] Methylphenidate HCl ER 36 MG Oral Tablet Extended Release 24 Hour 10/15/2022 Provider: Diagnosis: Last Documented On 3 10:43AM By Dione Frederick ; [facility], [facility] cloNIDine HCl 0.1 MG Oral Tablet 10/14/2022 Provider : NIDIA TAN Diagnosis: Last Documented On 3 10:45AM By Dione Frederick ; [facility], [facility] [place] Thyroid 90 MG Oral Tablet 10/11/2022 Provider : NIDIA TAN Diagnosis: Last Documented On 3 10:39AM By Dione Frederick ; [facility], [facility] Trulicity 0.75 MG/0.5ML Subc utaneous Solution Pen-injector 10/07/2022 Provider: ISAIAH PALOMINO MD (E ) Diagnosis: Last Documented On 3 10:43AM By Dione Frederick ; [facility], [facility] Gabapentin 300 MG Oral Capsule 09/23/2022 Provider: NIDIA TAN Diagnosis: Last Documented On 3 10:43AM By Dione Frederick ; [facility], [facility] FLUoxetine HCl 20 MG Oral Tablet 09/22/2022 Provider : Diagnosis: Last Documented On 3 10:44AM By Dione Frederick ; [facility], [facility] metFORMIN HCl ER 500 MG Oral Tablet Extended Release 24 Hour 09/02/2022 Provider: NIDIA TAN Diagnosis: Last Documented On 3 10:45AM By Dione Frederick ; [facility], [facility] Lisinopril-hydroCHLOROthiazi de 20-12.5 MG Oral Tablet 05/09/2022 Provider: NIDIA TAN Diagnosis: Last Documented On 3 10:39AM By Dione Frederick ; [facility], [facility] Medications Administered Includes: Administered Medications from this encounter No Administered Medications Recorded Vital Signs Includes: Vital Signs from this encounter Vital Name 10/25/2023 09:46A Height (in) 64 Weight (lb) 225 Body Mass Index 38.6 Body Surface Area 2.1 Note: PW Last Documented: On 10/25/2023 10:04A M ; [facility] Results Includes: Results discussed during this encounter No Results Recorded For Specified Dates History of Present Illness Includes: History of Present Illness from this encounter HPI Henna De is a 43 year old female. - Allergy list reviewed - Problem list reviewed - Medication list reviewed - History of Injections JOLEEN L4-5 06/16/2023 100% relief for 8 weeks L4-5 JOLEEN 09/17/23 - - Review of medications documented Social History Description Last Updated Tobacco non-user 11/05/2022 Last Documented On 4 9:45AM ; [facility] Caffeine use 11/05/2022 Last Documented On 4 9:45AM ; [facility] Exercising regularly 11/05/2022 Last Documented On 4 9:45AM ; [facility] Not a current smoker. 11/05/2022 Last Documented On 4 9:45AM ; [facility] Not using alcohol 11/05/2022 Last Documented On 4 9:45AM ; [facility], [facility] Not using drugs 11/05/2022 Last Documented On 4 9:45AM ; [facility] Recent change in diet Diabetic, nut and shellfish allergy 11/05/2022 Last Documented On 4 9:45AM ; [facility] Smoking Status Unknown Procedures and Surgical History Includes: Procedures from this encounter Procedures Code Diagnosis Performing Provider Service L ocation Service Date use of tobacco assessment performed 1000F Last Documented On 4 9:45AM ; [facility], [facility] review of medications documented 1160F Last Documented On 4 9:45AM ; [facility], [facility] an X-ray was performed 42094 Last Documented On 4 9:45AM ; [facility], [facility] an MRI was performed 08695 Last Documented On 4 9:45AM ; [facility] Surgical History Last Updated Past Surgical History: Adenomyosis 11/05 Last Documented On 4 9:45AM ; [facility], [facility] History of History of Gallbladder 2022 Last Documented On 4 9:45AM ; [facility], [facility] Medical History Includes: Medical History addressed during this encounter Description Last Updated History of Anemia 11/05/2022 Last Documented On 4 9:45AM ; [facility] History of arthritis 11/05/2022 Last Documented On 4 9:45AM ; [facility] History of depression 11/05/2022 Last Documented On 4 9:45AM ; [facility] History of diabetes mellitus 11/05/2022 Last Documented On 4 9:45AM ; [facility] History of Hypertension 11/05/2022 Last Documented On 4 9:45AM ; [facility] History of Irregular Heartbeat 3 Last Documented On 4 9:45AM ; [facility] History of Thyroid Disease 11/05/2022 Last Documented On 4 9:45AM ; [facility] Family History Includes: Family History addressed during this encounter Description Last Updated Diabetes mellitus 11/05/2022 Last Documented On 4 9:45AM ; [facility] Family history of cancer 11/05/2022 Last Documented On 4 9:45AM ; [facility] Family history of heart disease 11/06/19 23 Last Documented On 4 9:45AM ; [facility] Family history of osteoporosis 3 Last Documented On 4 9:45AM ; [facility] Family history of rheumatoid arthritis 0 11/05/2022 Last Documented On 4 9:45AM ; [facility] Family history of systemic hypertension 11/05/2022 Last Documented On 4 9:45AM ; [facility] Stroke / Seizures 11/05/2022 Last Documented On 4 9:45AM ; [facility] Maternal grandfather's history of diabet es mellitus 11/05/2022 Last Documented On 4 9:45AM ; [facility] Maternal grandfather's history of rheuma toid arthritis 11/05/2022 Last Documented On 4 9:45AM ; [facility] Maternal grandfather's history of system ic hypertension 11/05/2022 Last Documented On 4 9:45AM ; [facility] Maternal grandmother's history of osteop orosis 11/05/2022 Last Documented On 4 9:45AM ; [facility] Maternal grandmother's history of Stroke / Seizures 11/05/2022 Last Documented On 4 9:45AM ; [facility] Maternal grandmother's history of system ic hypertension 11/05/2022 Last Documented On 4 9:45AM ; [facility] Maternal history of osteoporosis 023 Last Documented On 4 9:45AM ; [facility] Maternal history of systemic hypertensio n 11/05/2022 Last Documented On 4 9:45AM ; [facility] Paternal grandfather's history of family history of cancer 11/05/2022 Last Documented On 4 9:45AM ; [facility] Paternal grandfather's history of family history of heart disease 11/05/2022 Last Documented On 4 9:45AM ; [facility] Paternal grandmother's history of Stroke / Seizures 11/05/2022 Last Documented On 4 9:45AM ; [facility] Paternal grandmother's history of system ic hypertension 11/05/2022 Last Documented On 4 9:45AM ; [facility] Paternal history of family history of ca ncer 11/05/2022 Last Documented On 4 9:45AM ; [facility] Paternal history of family history of he art disease 11/05/2022 Last Documented On 4 9:45AM ; [facility] Paternal history of systemic hypertensio n 11/05/2022 Last Documented On 4 9:45AM ; [facility] Sororal history of diabetes mellitus Last Documented On 4 9:45AM ; [facility] Sororal history of systemic hypertension 11/05/2022 Last Documented On 4 9:45AM ; [facility] Review of Systems Includes: Review of [...] Time Diagnosis Follow Up Jemal Arcos [facility] 4 9:18AM 10:28AM Overweight Insurance Includes: Active Insurance Policies Plan Name Member ID Group # Subscriber Relationship Effect shani Dates 1 - PRIME [id number] Henna sanchez Clinical Notes Includes: Clinical Notes from this encounter No Clinical Notes Recorded
== END 2024-08-22 23:59 | disposition home or self-care (01) ==
LOC: LAB 10:53
PROVIDERS: PCP Nurse Practitioner; Visit Provider Nurse Practitioner Family
DX: E78.5 Hyperlipidemia, unspecified (principal); E11.9 Type 2 diabetes mellitus without complications; I10 Essential (primary) hypertension
CPT/HCPCS: 36415; 80061; 80076

== ENCOUNTER 2025-05-14 09:22 | Outpatient (CLI) | payer OTHER, SELFPAY ==
--- NOTE | 2025-05-14 09:25 | MM_ITS ---
PROCEDURE INFORMATION: Exam: MG Bilateral Screening 3D Mammography Exam date and time: 05/14/2025 9:46 AM Age: 44 years old Clinical indication: Screening examination TECHNIQUE: Imaging protocol: Bilateral Screening tomosynthesis and 2D mammography including computer-aided detection (CAD) when performed. COMPARISON: No relevant prior studies available. FINDINGS: MAMMOGRAPHY: Breast composition: There are scattered areas of fibroglandular density. Mass: None. Architectural distortion: None. Calcifications: No suspicious calcifications. Asymmetric density: None. Skin thickening: None. Axillary adenopathy: None. IMPRESSION: No mammographic evidence of malignancy. Annual screening is recommended unless otherwise clinically indicated. ASSESSMENT: BI-RADS Category 1: Negative.
--- OUTSIDE RECORDS SUMMARY | 2025-05-14 09:34 | XMS_ITS | Clinical Summary ---
Author Organization [employer] ([place], [place], [place], [place], [place]) Address [address] [place] [address] Care Team Providers Care Photo Producer Name Role Phone Mey Sheehan APRN Primary Care Provider [phone] Social History Tobacco Use Types Packs/Day Years Used Date Smoking Tobacco: Never Assessed Food Insecurity Answer Date Recorded Food run out past 12 months Not on file 05/17 Food did not last past 12 months Not on file 06/04/2023 Employment Answer Date Recorded Help finding and keeping a job Not on file 0 06/04/2023 Family and Community Support Answer Gera e Recorded Help with Day to Day Activities Not on file 06/04/2023 Feeling Lonely or Isolated Not on file 06/04 Educational Attainment Answer Date Connor rded Speak language other than Welsh at home Not on file 06/04/2023 Want help with school or training Not on file 06/04/2023 Substance Use Answer Date Recorded Used prescription meds for non-medical reasons N ot on file 06/04/2023 Used illegal drugs past 12 months Not on file 06/04/2023 Comments Unknown Sex and Gender Information Value Date Recorded Sex Assigned at Not on file Legal Sex Female 5:40 PM CDT Gender Identity Not on file Sexual Orientation Not on file Plan of Treatment Health Maintenance Due Date Last Done Comments CT Colonography 1978 Colonoscopy 1978 Colorectal Cancer Screening 1978 FOBT/FIT 1978 Fit-DNA (Cologuard) 1978 Sigmoidoscopy 1978 Depression Screening (12+) 1990 Tobacco Cessation Counseling and Screening (12+) 1990 HIV Screening 1993 Hepatitis C Screening 1996 Pap Smear 09/04/1999 Breast Cancer Screening 2018 Lipid Panel 09/04/2023 COVID-19 VACCINE ( season) 2025 02/11/2022, 03/31/2021, 08/20/2020, Additional history exists Influenza Vaccine (#1) 2025 DTAP/TDAP/TD VACCINES (2 - Td or Tdap) 12/21/2029 12/22/2019 Pneumococcal Vaccine: 0-49 Years Aged Out No longer eligible based on patient's age to complete this topic Insurance [facility] Care Teams Photo Producer Relationship Specialty Start Date End Date Mey Sheehan APRN [address] [place] [id number] PCP - General Nurse Practitioner 09/18/22
--- OUTSIDE RECORDS SUMMARY | 2025-05-14 09:34 | XMS_ITS | Clinical Summary ---
Author Organization [facility] Address [address] [place] [address] Care Team Providers Care Waist Cutter Name Role Phone Sade Kohli APRN Primary Care Provider [phone] Family History Medical History Relation Name Comments Colon cancer Father Hypertension Mother Thyroid disease Other Relation Name Status Comments Father Mother Other Social History Tobacco Use Types Packs/Day Years Used Date Smoking Tobacco: Never Alcohol Use Standard Drinks/Week Comments No 0 (1 standard drink = 0.6 oz pur e alcohol) Comments Unknown Sex and Gender Information Value Date Recorded Sex Assigned at Not on file Legal Sex Female 6:27 PM EDT Gender Identity Not on file Sexual Orientation Not on file Last Filed Vital Signs Vital Sign Reading Time Taken Comments Blood Pressure - - Pulse - - Temperature - - Respiratory Rate - - Oxygen Saturation - - Inhaled Oxygen Concentration - - Weight 100 kg (221 lb 0.2 oz) 10/15/2016 10:41 A M EDT Height 162.6 cm (5' 4 ) 10/15/2016 10:41 AM EDT Body Mass Index 37.94 10/15/2016 10:41 AM EDT Plan of Treatment Not on file Care Teams Waist Cutter Relationship Specialty Start Date End Date Sade Kohli APRN [address] [place] [address] PCP - General 09/27/20
--- OUTSIDE RECORDS SUMMARY | 2025-05-14 09:34 | XMS_ITS | Referral Summary ---
Author Organization [email or web address] ([place], [place], [place], [place], [place]) Address [address] [place] [address] Care Team Providers Care Floor Winder Name Role Phone Sheehan Mey APRN Primary Care Provider Social History Tobacco Use Types Packs/Day Years [...] Date Connor rded Speak language other than Micronesian at home Not on file 06/04/2023 Want [...] Orientation Not on file Plan of Treatment Not on file Insurance [facility] Care Teams Floor Winder Relationship Specialty Start Date End Date Mey Sheehan, [employer] [address] [phone] PCP - General Nurse Practitioner 09/18/22
== END 2025-05-14 23:59 | disposition home or self-care (01) ==
LOC: RAD 09:22
PROVIDERS: PCP Nurse Practitioner; Visit Provider Nurse Practitioner
DX: Z12.31 Encounter for screening mammogram for malignant neoplasm of breast (principal); R92.323 Mammographic fibroglandular density, bilateral breasts
CPT/HCPCS: 77063; 77067